=== PATIENT | female | born 1990 | race Caucasian/White ===

== ENCOUNTER 2016-08-19 16:40 | Inpatient (IN) | payer OTHER ==
--- NOTE | ~2016-08-19 | CN ---
Consultation Report [facility] [address] [place]. [address] NAME: ALIYAH BREEN : 86 STATUS : ADM IN PAT#: [id number] AGE: 26 ADM/REG DATE : 08/19/16 MR#: [id number] REPORT SERV DATE: 08/20/16 DICTATED BY: NICHOLAS FELTON DATE: 08/20/16 REPORT STATUS : Draft TRANSCRIBED BY: MODL DATE: 08/20/16 DATE OF CONSULTATION: REASON FOR CONSULTATION: Pancytopenia. HISTORY OF PRESENT ILLNESS: Ms. 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 She has not been seen by primary group previously. She is now hospitalized with the severe pancytopenia of unclear etiology. I spoke with her father, who reports that her counts were relatively normal with mild anemia in July when they were at [facility]. She was admitted to [facility], placed on Bactrim, found to have significant anemia at that time and thought to have a urinary tract infection. Since then, she has been seen by her packaging technician, found to have a white count of 1.8, hemoglobin 7.9, and platelet count of 33,000 and therefore, was admitted to [facility] on 08/19/2016. Since then, she has continued to have significant pancytopenia with a current white count of 2.5, hemoglobin dropping settling of 5.7 today, and a platelet count of 28,000. The patient has required transfusion today, but also received significant volume resuscitation earlier today. I spoke with the father, who reports that he is not sure if she has had prior marrow suppression. Per Dr. Fung's details instructions, Prograf and Imuran have been held at this time. CMV testing has been performed. Yesterday, she became quite confused, developed some metabolic acidosis and was transferred to the ICU. Over the course of the day, she has gotten 4 L of IV fluids. She does have some urine output, although her creatinine remains quite elevated at 4.2. Her blood glucose has now come down to the 120s. PAST MEDICAL HISTORY: 1. Liver transplant secondary to autoimmune hepatitis in 1996. 2. Diabetes type 2. 3. Irritable bowel. 4. Bipolar disorder. 5. Pancytopenia. 6. History of gastroparesis. 7. Chronic kidney disease. 8. Anxiety. 9. Depression. FAMILY HISTORY: She is adopted. Her father is a pathologist and is quite helpful regarding her history. SOCIAL HISTORY: She does not drink or smoke. Lives at home with her boyfriend. She is not able to give me any history as she is quite confused. REVIEW OF SYSTEMS: Unable to give me any history. Consultation Report [address] [place]. [address] NAME: ALIYAH BREEN : 86 STATUS : ADM IN PAT#: [id number] AGE: 26 ADM/REG DATE : 08/19/16 MR#: [id number] REPORT SERV DATE: 08/20/16 DICTATED BY: NICHOLAS FELTON DATE: 08/20/16 REPORT STATUS : Draft TRANSCRIBED BY: JENARO DATE: 08/20/16 PHYSICAL EXAMINATION: VITAL SIGNS: Temperature 98.7, heart rate of 81, BP 122/58. HEENT: Pupils equal, round. She is quite confused and lethargic. Anicteric sclerae. Oral mucosa appears moist. JVP is not elevated. LUNGS: Clear to auscultation. No wheezes or rales. CARDIAC: Regular rate and rhythm. Normal S1, S2. No murmurs or rubs. ABDOMEN: Soft, nontender, nondistended. EXTREMITIES: No clubbing, no cyanosis, no edema. NEUROLOGIC: She is quite sedated and unable to get pretty much and follow directions. LABS: Peripheral film was reviewed. She does have a significant decreased number of platelets. Red blood cells are normal in size and shape. Platelets, there are few teardrop shaped cells. There are no signs of schistocytes. ASSESSMENT AND PLAN: Ms. Aliyah Breen is a 26-year-old woman with a pancytopenia, unclear cause. She certainly may have some marrow suppression secondary to Bactrim discontinued. This will take several days for this to resolve Bactrim. We also reviewed with the father given that there may be a chronic component that she could have her posttransplant liver lymphoproliferative disorder. She has no adenopathy on exam. I think the most the efficient way of ruling out this is bone marrow biopsy which can be performed tomorrow. The most common cause of this would be again viral infections and this patient's proliferation of fairly frequent. I agree with evaluating for CMV and then have low thresholds to CMV PCR. My partners and I will continue follow closely with you. DBD/MODL Nicholas Felton M.D. / [id number] CC: MD Deshaun Luciano M.D.
--- NOTE | ~2016-08-19 | HP ---
History And Physical [place] [id number] [facility] [place]. [address] NAME: JASPER BREEN : 86 STATUS : ADM IN [facility]#: [id number] AGE: 26 ADM/REG DATE : 08/19/16 MR#: [id number] REPORT SERV DATE: 08/19/16 DICTATED BY: SID FELTON DATE: 08/19/16 REPORT STATUS : Draft TRANSCRIBED BY: MODL DATE: 08/19/16 DATE OF ADMISSION: 08/19/2016 CHIEF COMPLAINT: Abnormal labs and nausea with vomiting and dysuria. HISTORY OF PRESENT ILLNESS: This is a 26-year-old lady with history significant for autoimmune hepatitis status post liver transplant, presenting with abnormal labs along with nausea, vomiting, and dysuria. The patient apparently developed nausea and vomiting about couple of weeks ago. The patient was seen at [facility], where she was apparently found to have a urinary tract infection as well as a quite severe anemia with hemoglobin of 5.6. For unclear reasons, the patient was discharged home from the ER and the patient was seen by her PCP the next day, who had her directly admitted to [facility]. The patient was at [facility] for six days and she has gotten some IV fluids along with 2 PRBCs. Otherwise, the patient apparently did not get any other procedures or workup done. The patient was not told of any renal insufficiency or liver dysfunction. Notably, the patient apparently had some kind of thyroid scan, but she is not aware of the results. After six days of hospital stay at [facility], the patient was discharged home one week ago on Bactrim. The patient actually felt better for couple of days before she felt sick again. The patient started to have nausea and vomiting with dysuria. The patient followed up with Dr. High, her buckram sewer, who took some labs and gave her some fluids yesterday. The patient's labs returned today quite abnormal with a creatinine of 4.4 as well as white blood cell count of 1.8, hemoglobin of 7.9, and platelet count of 33. The patient was directly admitted to our facility for further evaluation and care. Of note, the patient continues to have dysuria and severely decreased urine output. REVIEW OF SYSTEMS: The patient denies any fevers or chills. Also, 14-point review of systems reviewed and negative, other than mentioned above. MEDICATIONS: 1. BuSpar 7.5 mg p.o. b.i.d. 2. Cranberry supplement one capsule p.o. b.i.d. 3. Deplin 15 mg p.o. q.a.m. 4. Fish oil 1200 mg p.o. b.i.d. 5. Azathioprine 150 mg p.o. q.h.s. 6. [place] carbonate 450 mg p.o. q.h.s. 7. Acetylcysteine 600 mg p.o. b.i.d. 8. NovoLog per insulin pump. 9. Prednisone 5 mg p.o. q.h.s. 10.Prograf 4 mg p.o. b.i.d. 11.Protonix 40 mg p.o. b.i.d. 12.Seroquel 20 mg p.o. q.h.s. 13.Actigall 300 mg p.o. b.i.d. 14.Phenergan 25 mg p.o. four times daily p.r.n. 15.Zofran 4 mg one to two tablets p.o. q.8 hours p.r.n. 16.Phenergan 25 mg to 50 mg p.o. q.h.s. p.r.n. History And Physical [address] [address] NAME: JASPER BREEN : 86 STATUS : ADM IN [facility]#: [id number] AGE: 26 ADM/REG DATE : 08/19/16 MR#: [id number] REPORT SERV DATE: 08/19/16 DICTATED BY: SID FELTON DATE: 08/19/16 REPORT STATUS : Draft TRANSCRIBED BY: MODL DATE: 08/19/16 17.Aleve 220 mg p.o. q.6 hours p.r.n. 18.Aspirin 325 mg two tablets p.o. q.6 hours p.r.n. for pain. 19.Benadryl 50 mg p.o. q.h.s. p.r.n. ALLERGIES: SULFA. PAST MEDICAL HISTORY: 1. Autoimmune hepatitis status post liver transplant in 1996. 2. Insulin requiring diabetes type 1, on insulin pump. 3. Gastroparesis. 4. Bipolar. 5. Anxiety and depression. 6. OCD. PAST SURGICAL HISTORY: Liver transplant in 1996. FAMILY HISTORY: Adopted and thus, the patient is unaware. SOCIAL HISTORY: The patient does not smoke, drink alcohol, or use any illicit drugs. The patient lives at home with her boyfriend, who is here at bedside. PHYSICAL EXAMINATION: VITAL SIGNS: Temperature 97.9, blood pressure 127/57, pulse 99, respiratory rate is 20, and saturating 99% on room air. GENERAL: The patient is alert and oriented x3 with no focal neurologic deficits. The patient is awake, does not appear to be in acute distress, and she is cooperative. NECK: No JVD. No lymphadenopathy. Normal thyroid. CHEST: No midline sternotomy scar and no tenderness to palpation. LUNGS: Clear to auscultation bilaterally with normal respiratory effort on room air. CARDIOVASCULAR: Regular rate and rhythm with no murmurs, rubs, or gallops, and PMI is nondisplaced. ABDOMEN: Soft, nontender, with active bowel sounds and no organomegaly. EXTREMITIES: No edema. Normal distal pulses. No calf tenderness. SKIN: Clean, dry, warm, and intact. LABORATORY DATA: Sodium is 137, potassium 5.0, chloride 103, BUN 73, creatinine 4.4, glucose 140, AST 65, ALT 75, alkaline phosphatase is 817, total bilirubin is 1.6. CBC: White blood cell count is 1.8, hemoglobin is 7.9 with MCV of 116.1, and platelet count of 33. ASSESSMENT: This is a 26-year-old lady with history of autoimmune hepatitis and diabetes type 1, presenting with pancytopenia and nausea, vomiting, and dysuria. 1. Pancytopenia. 2. Acute kidney injury. 3. Elevated LFTs in the setting of history of liver transplant. 4. Urinary tract infection. 5. Diabetes type 1. 6. Gastroparesis. History And Physical [address] [address] NAME: JASPER BREEN : 86 STATUS : ADM IN [facility]#: [id number] AGE: 26 ADM/REG DATE : 08/19/16 MR#: [id number] REPORT SERV DATE: 08/19/16 DICTATED BY: SID FELTON DATE: 08/19/16 REPORT STATUS : Draft TRANSCRIBED BY: MODL DATE: 08/19/16 7. Bipolar, anxiety, and obsessive-compulsive disorder. PLAN: My plan is to admit the patient under telemetry monitoring. The patient will be given IV fluid resuscitation. In's and out's will be closely monitored. I will check labs to include urine studies, urine culture, liver enzymes, CBC. I will also check coags, TSH, and reticulocyte count percentage. Dr. High has already seen the patient, and we will also consult Nephrology as well as Hepatology, Dr. Paul Fung to come and evaluate the patient. The patient will also get liver ultrasound and kidney ultrasounds. For the urinary tract infection, the patient will be empirically started on IV Rocephin and any potentially nephrotoxic medications will be held at this time. Otherwise, for the rest of stable past medical conditions, including diabetes type 1, gastroparesis, bipolar, anxiety, et al., I will continue home medications. Standard DVT prophylaxis. The patient is full code at this time. C/JENARO Sid Felton MD / [id number] CC: MD Deshaun Luciano M.D. Munford Yates III, M.D.
--- NOTE | ~2016-08-19 | CN ---
Consultation Report [facility] [address] [place]. [address] NAME: JASPER BREEN : 86 STATUS : ADM IN PAT#: [id number] AGE: 26 ADM/REG DATE : 08/19/16 MR#: [id number] REPORT SERV DATE: 08/20/16 DICTATED BY: SHAY KUO DATE: 08/19/16 REPORT STATUS : Draft TRANSCRIBED BY: MODL DATE: 08/19/16 CONSULTATION DATE OF CONSULTATION: 08/19/2016 TIME: 8:35 p.m. ASSESSMENT: Acute on chronic kidney disease in a patient with pancytopenia, increased liver function tests, history of liver transplant, bipolar disorder, on chronic lithium use with ongoing dysuria, question of Bactrim versus Imuran-induced bone marrow suppression, and Bactrim leading to acute kidney injury, or in the setting of liver decompensation that she has. She has gone on to have hepatorenal syndrome, possibly some acute tubular necrosis in relation to ongoing urinary tract infection and possibly periods of hypotension. Other disorders include CMV versus PTLD verus recurrence of autoimmune hepatitis and underlying autoimmune disease. PLAN: Therefore, 1. Continue hydration. 2. Ditropan for dysuria. 3. Urinalysis. 4. Abdominal and pelvic CT scan. 5. Stress dose steroids. Stop the Imuran and reduce the Prograf dose. 6. Check JUAN CARLOS and complements. 7. Hematology and Hepatology consult. 8. Adjust her diet. 9. Hold lithium, pending level, and await further recommendations and question of need for a bone marrow biopsy and see trend in lab work. Hopefully, renal function will improve as this is mainly Bactrim-induced injury. Obtain records from [place]. HISTORY OF PRESENT ILLNESS: She is a 26-year-old female with liver transplant in 1996 due to autoimmune hepatitis. She has seen previously by our group with underlying CKD last in 2013, prior acute kidney injury due to dehydration. Apparently was at [facility] for a week approximately 10 days ago when she presented there with anemia and also complaints of some dysuria and difficulty in voiding, felt she may have a UTI, question whether she got transfused over there at [place], and the patient is unclear of the details as to what was done for there, but apparently placed on Bactrim and IV fluids. Discharged home. Nausea and vomiting persisted. Pruritus, but no skin rash, and came into the ER here where she was found to have an acute hepatitic picture and in addition found to be in renal failure and pancytopenic. As a consequence, she has been admitted, and we have been consulted for further evaluation. She denies any prior history of acute injury on chronic kidney disease, although records indicate that she had a creatinine as high as previously of 1.3 in 2014. She is on chronic lithium use for bipolar disorder, but her main complaint now is persistent dysuria. Denies any abdominal pain. No shortness of breath. No rash. No pain in the right upper quadrant. She has had some nausea and vomiting, but has been taking Zofran to keep her immunosuppression down. Consultation Report [facility] [address] [place]. [address] NAME: JASPER BREEN : 86 STATUS : ADM IN PAT#: [id number] AGE: 26 ADM/REG DATE : 08/19/16 MR#: [id number] REPORT SERV DATE: 08/20/16 DICTATED BY: HSAY KUO DATE: 08/19/16 REPORT STATUS : Draft TRANSCRIBED BY: JENARO DATE: 08/19/16 PAST MEDICAL HISTORY: Includes 1. A history of autoimmune hepatitis for which she got a liver transplant when she was 6 years old initially at [place] and now followed at [facility]. 2. Bipolar disorder. 3. CKD and history of gastroparesis. She is also apparently diabetic. ALLERGIES: POSSIBLY TO BACTRIM. HOME MEDICATIONS: Include acetylcysteine, aspirin, Imuran, BuSpar, Benadryl, NovoLog, lithium, Naprosyn, pantoprazole, Protonix, Deltasone, Phenergan, Seroquel, Prograf, Actigall, and Deplin. SOCIAL HISTORY: Does not smoke cigarettes. No alcohol or medication or street drug usage. SYSTEM REVIEWS: As per the HPI. PHYSICAL EXAMINATION: GENERAL: She is awake, alert, and in no acute distress. VITAL SIGNS: Blood pressure 135/66, heart rate in the 80s. She is afebrile. SKIN: She is pale and jaundiced. HEENT: Oral mucosa is dry. No pharyngitis. Pupils are equal and reactive to light. NECK: Supple. No thyromegaly. No carotid bruits heard. No lymphadenopathy. Trachea is central. LUNGS: Air entry is equal bilaterally. CHEST: Clear to auscultation. HEART: Heart sounds 1 and 2 are heard. No rub or apex beat is not displaced. ABDOMEN: Mild distention. No hepatosplenomegaly. No tenderness, guarding, or rebound. Bowel sounds normal. EXTREMITIES: She has trace peripheral edema. There is no evidence of skin rash. Mild edema is noted and no loss of skin turgor. No acute arthritic findings noted. NEUROLOGIC: She is awake, alert, oriented to time, place, and person. No gross neurological deficits. Peripheral pulses are present dorsalis pedis, posterior tibial. She is awake, alert, and oriented to time, place, and person. Herrick not depressed. LABORATORY DATA: Her lab work shows her to have sodium 131, potassium 5.3, chloride 100, CO2 of 24, BUN 70, creatinine 3.8, albumin is 3.1, alkaline phosphatase 844, gamma GT 718, ALT 71, AST 58, TSH was less than 0.005. Hemoglobin 7.1, hematocrit 21.8, white count 1.6, and platelet count 35,000. MG/MODL Shay Consultation Report [address] [place]. [address] NAME: JASPER BREEN : 86 STATUS : ADM IN [facility]#: [id number] AGE: 26 ADM/REG DATE : 08/19/16 MR#: [id number] REPORT SERV DATE: 08/20/16 DICTATED BY: SHAY KUO DATE: 08/19/16 REPORT STATUS : Draft TRANSCRIBED BY: MODL DATE: 08/19/16 Armaan Kuo / [id number] CC: MD Deshaun Luciano M.D.
--- NOTE | ~2016-08-19 | CN ---
Consultation Report [facility] [address] [place]. [address] NAME: JASPER BREEN : 86 STATUS : ADM IN PAT#: [id number] AGE: 26 ADM/REG DATE : 08/19/16 MR#: [id number] REPORT SERV DATE: 08/20/16 DICTATED BY: PAUL FUNG DATE: 08/20/16 REPORT STATUS : Draft TRANSCRIBED BY: MODL DATE: 08/20/16 CONSULTATION DATE OF CONSULTATION: REASON: Cholestatic hepatitis with history of liver transplant and acute kidney injury. HISTORY: Ms. Breen is a 26-year-old, lady with history of liver transplant in 1996 secondary to autoimmune hepatitis. She has diabetes, on insulin pump. Also has IBS followed by my partner, Dr. High as an outpatient for GI issues. She follows at [place] for liver transplant care under Dr. Lim. She started having nausea, vomiting, abdominal pain, went to [facility]. Blood work showed anemia and thrombocytopenia. Given antibiotics and IV fluid and discharged home. Next day went to primary care physician since she was not feeling better, was directly admitted to [facility] under Hospitalist Service. Treated for urinary tract infection. She was also found having hyperthyroidism, seen by complex care nurse, had a thyroid uptake scan which revealed only 1.7% uptake consistent with thyroiditis, possible autoimmune/drug-induced. She has bipolar disorder on lithium, along with Seroquel and Deplin for long time. There is some history of prescription of Bactrim to the patient but I did not see Bactrim on the discharge summary from [facility]. She was there for 5 to 6 days. Her liver functions were pretty much normal with AST of 57, total bilirubin of 1.7, albumin 4.1, alkaline phosphorus was 523. Prograf level was 3.6. Renal functions were normal. At the time of discharge, creatinine was 1. Sodium was 138. Since she was not feeling better, she went to see Dr. High yesterday, had a lab work done, came with acute kidney injury. Creatinine 4.4 with hyponatremia, elevated transaminases and GGT and worsening liver functions. She has been on Prograf, Imuran, and prednisone for a long time. I do not have any information whether she had autoimmune flare after the transplant, do not know the status of histology. Last liver biopsies were not able to get from patient. Since admission, patient has been seen by Dr. Kuo from the Renal Service, hydrocortisone 100 mg IV every 8 hours has been started. Imuran and Prograf have been on hold. Aneta has been on hold at this point. The patient is complaining of nausea, fatigue, weakness, also has itching, has been on Ursodiol, not sure how long, suspecting due to cholestasis, chronic. This morning, her renal functions are bit better. Creatinine has decreased to 3.8 but her symptoms have not improved significantly. PAST MEDICAL HISTORY: Autoimmune hepatitis, status post liver transplant. Type 1 diabetes, on insulin. Gastroparesis, bipolar disorder, IBS, anxiety, and depression. Consultation Report [address] [place]. [address] NAME: JASPER BREEN : 86 STATUS : ADM IN PAT#: [id number] AGE: 26 ADM/REG DATE : 08/19/16 MR#: [id number] REPORT SERV DATE: 08/20/16 DICTATED BY: PAUL FUNG DATE: 08/20/16 REPORT STATUS : Draft TRANSCRIBED BY: MODIla DATE: 08/20/16 PAST SURGICAL HISTORY: Liver transplant in . FAMILY HISTORY: Adopted. SOCIAL HISTORY: Does not smoke. Does not drink alcohol. Lives home with her boyfriend. REVIEW OF SYSTEMS: As per HPI. Other systems reviewed, significant positive has been mentioned in the history. PHYSICAL EXAMINATION: GENERAL: Well developed, well nourished, anxious, restless, but not able to provide detailed accurate history, but answering questions directly. VITALS: Blood pressure is 130/80, pulse 110, respiration 21, temperature 98.7, pulse ox 97%. EYES: Have pallor, also has icterus. Pupils equally round, reactive. NECK: Supple. No JVD or thyromegaly. LUNGS: Bilateral clear to auscultation. No rales, rhonchi, or wheezing. CARDIOVASCULAR: S1, S2 present. Rate and rhythm regular. No murmur or gallop. ABDOMEN: Soft, mild diffuse tenderness. No rebound tenderness. No ascites. EXTREMITIES: Trace edema. Normal pulses. No signs of DVT. NEURO: No focal deficits. Cranial nerves intact. Speech is normal. LAB WORK: Sodium 131, potassium 5.3, chloride 100, bicarb 24, BUN 17, creatinine 3.8, glucose 165, total bilirubin 2, alkaline phosphatase 844, GGT 718, ALT 71, AST 58, LDH 224. TSH less than 0.005. IgG and IgM are normal. Complement levels are pending. Urine negative. JUAN CARLOS is pending. WBC 1.6, hemoglobin 7.1, platelet 35. INR 1.1. Prograf level is pending. Urine chemistries pending. HSV and CMV are pending. CT abdomen and pelvis is pending. Ultrasound of the liver and kidneys both are pending at this point. IMPRESSION: 1. Cholestatic hepatitis, acute on chronic, worsening function, suspect due to medication related, doubt rejection. Since she has baseline cholestasis, bilirubin is pretty much at baseline. Transaminase, bit worse. 2. Unknown current liver status. Not sure when she had last liver biopsy. 3. Status post liver transplant in 1996 secondary to autoimmune hepatitis. Her liver functions are relatively preserved until recently. Last liver functions were stable as of [facility] records when she was discharged on 08/11/2016. 4. Acute kidney injury, suspect due to medications. Renal functions were normal on 08/09 from the [place] records. Imuran, Prograf, and lithium are on hold at this point, getting IV fluids. 5. Bipolar disorder. Multiple medications including lithium. 6. 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 Serology has been drawn at [facility]. No need of further workup at this time but definitely need some beta todd, may be Tapazole once renal functions are bit better. Consultation Report [address] [place]. [address] NAME: JASPER BREEN : 86 STATUS : ADM IN PAT#: [id number] AGE: 26 ADM/REG DATE : 08/19/16 MR#: [id number] REPORT SERV DATE: 08/20/16 DICTATED BY: PAUL FUNG DATE: 08/20/16 REPORT STATUS : Draft TRANSCRIBED BY: MODL DATE: 08/20/16 7. Anxiety/depression. 8. Pruritus, secondary to cholestasis. SUGGESTION: 1. For liver transplant medication. We will hold Prograf and Imuran at this time. 2. Agree with hydrocortisone IV every 8 hours. 3. We will get CMV IgM,HSV IgM. If those are positive then PCR due to pancytopenia. 4. Agree with hematology consult for acute on chronic pancytopenia. 5. IV fluids. 6. Hold lithium at this point. I think we will have to treat her bipolar with non-lithium medications. 7. Continue Ursodiol. At this point, we can add Questran for itching along with antihistamine. 8. Daily labs. 9. Avoid renal and hepatotoxic medications. Please call me if you have any question or concern. I will try to get in touch with Dr. Lim and get [facility] record. We will hold liver biopsy at this point since it is not urgency. If there is no liver biopsy recently at [place] then we can schedule it tomorrow or Thursday. Call me if you have any questions or concerns. CP/MODL Paul Fung M.D. / [id number] CC: MD Deshaun Luciano M.D.
--- NOTE | ~2016-08-19 | DS ---
Discharge Summary [id number] [place]. [address] NAME: JASPER BREEN : 86 STATUS : DIS IN PAT#: [id number] AGE: 26 ADM/REG DATE : 08/19/16 MR#: [id number] REPORT SERV DATE: 08/25/16 DICTATED BY: SID FELTON DATE: 08/24/16 REPORT STATUS : Draft TRANSCRIBED BY: MODL DATE: 08/24/16 ADMISSION DATE: 08/19/2016 DISCHARGE DATE: 08/24/2016 DISCHARGE DIAGNOSES: 1. Acute on chronic kidney disease with metabolic acidosis, present on admission but now resolved. Baseline creatinine is 1.7 but the patient's creatinine this morning is 1.27. 2. Acute on chronic pancytopenia with white count of 2.4, hemoglobin 8.5, and platelet of 39 today. The patient's baseline white blood cell count is 3000 and platelet counts are in the 100s. Hemoglobin is comparable to baseline. 3. Likely a reaction to Bactrim as the cause for above. 4. 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 5. Slightly elevated LFTs at baseline. 6. Toxic metabolic encephalopathy. 7. Pulmonary edema during the hospital stay. 8. Type 1 diabetes with possible component of diabetic ketoacidosis that has contributed to the acidosis mentioned above. 9. Bipolar disorder, has been on lithium which has been discontinued for now. CONSULTS: 1. GI and Hepatology. 2. Nephrology. 3. Critical Care. 4. Heme-Onc. PROCEDURES: Bone marrow biopsy for which the results are still pending at this time. OTHER TESTS: 1. CMV which was negative. 2. 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 HOSPITAL COURSE: This is a 26-year-old lady who was admitted to the hospital with acute kidney injury after having been on Bactrim for urinary tract infection. For details, please refer to my H and P dated 08/19/2016. The patient was admitted to the hospital with creatinine of 4 which is much higher than her baseline of 1.7. The patient was otherwise doing fairly well. The patient is on chronic immunosuppressive therapy including Prograf, Imuran, and steroids which would affect her kidney function as well as her immune system. The patient still had a very positive urinalysis and thus the patient was started on IV Rocephin and most of her immunosuppressive suppressants were held. The patient was started on IV steroids instead. By the next morning, the patient developed worsening metabolic acidosis likely due to the acute kidney injury as well as possible component of DKA. The patient actually required to be transferred to an ICU where she was taking care of the rest of the hospital stay until the day of discharge. In summary, the patient was seen by multiple different specialties. Thankfully with aggressive volume resuscitation along with Discharge Summary [address] [address] NAME: JASPER BREEN : 86 STATUS : DIS IN PAT#: [id number] AGE: 26 ADM/REG DATE : 08/19/16 MR#: [id number] REPORT SERV DATE: 08/25/16 DICTATED BY: SID FELTON DATE: 08/24/16 REPORT STATUS : Draft TRANSCRIBED BY: MODL DATE: 08/24/16 eventual diuretic therapy, the patient's renal function continued to improve. The patient's renal function is now better than baseline this morning with creatinine of 1.27 whereas her baseline is 1.7. The patient did develop transient pulmonary edema with volume resuscitation but with diuresis the patient improved. For the acute on chronic pancytopenia, Hematology was consulted who actually went ahead and did a bone marrow biopsy. The results are still pending at this time but consensus is that the patient probably suffered from bone marrow suppression from the Bactrim as well as other immunosuppressive therapy that she is chronically on. The patient's white blood cell count and platelets have nonetheless stayed stable throughout the hospital stay. The patient was tested for possible CMV as well as HSV and interestingly the HSV did come back positive and thus the patient was started on acyclovir which she remains for now. The patient will follow up with Oncology as soon as she is discharged and hopefully by then the bone marrow biopsy results will be back and decision will be made to either continue or stop the acyclovir. For the diabetes type 1 with possible DKA, the patient did develop extreme hyperglycemia as the patient was started on steroids by the second day of her hospital stay. The patient did have an anion gap but only a very small amount of acetone and negative for ketones but the patient was treated for a presumed DKA still with insulin drips. The patient is now back on her home insulin pump. Also of note, the patient has a history of bipolar disorder for which she has been on lithium. The patient's lithium level was found to be elevated and thus it is discontinued especially given patient's worsening renal function. We will leave the decision for continuing lithium up to her primary care. All in all, the patient is now completely hemodynamically stable and back to her baseline health status. The patient very much is eager to be discharged home and she has excellent outpatient followup plans. Thus, the patient is now being discharged home to be followed closely as outpatient. DISCHARGE MEDICATIONS: 1. Acyclovir 400 mg p.o. b.i.d. for the next 5 days. 2. The patient's lithium is discontinued. 3. Otherwise, no changes to her chronic medical regimen including Prograf, Imuran, and steroids. DISPOSITION: Home. FOLLOWUP: Please follow up with [facility], Dr. High and Dr. Fung in the next 3-5 days. The patient will need to have a CBC and a CMP done prior to her appointments. The patient is also to follow up with [facility] closely and we will have all the medical records faxed over to [facility]. Total of 45 minutes spent in coordinating this patient's discharge today. HECTOR/JENARO Sid Felton MD Discharge Summary [address] [address] NAME: JASPER BREEN : 86 STATUS : DIS IN PAT#: [id number] AGE: 26 ADM/REG DATE : 08/19/16 MR#: [id number] REPORT SERV DATE: 08/25/16 DICTATED BY: SID FELTON DATE: 08/24/16 REPORT STATUS : Draft TRANSCRIBED BY: JENARO DATE: 08/24/16 / [id number] CC: MD Deshaun Luciano M.D.
--- NOTE | ~2016-08-19 | CN ---
Consultation Report [facility] [address] [place]. [address] NAME: JASPER BREEN : 86 STATUS : ADM IN PAT#: [id number] AGE: 26 ADM/REG DATE : 08/19/16 MR#: [id number] REPORT SERV DATE: 08/20/16 DICTATED BY: GUERDA WALL DATE: 08/20/16 REPORT STATUS : Draft TRANSCRIBED BY: MODL DATE: 08/20/16 CONSULTATION DATE OF CONSULTATION: HISTORY OF PRESENT ILLNESS: This is a 26-year-old patient I was asked to see by the hospitalist Dr. Kinney for severe encephalopathy, metabolic acidosis, renal failure, and hyperkalemia. The patient had been admitted to the floor on 07/22/2016 with nausea and vomiting that was persistent. Apparently, the patient has had a previous history of underlying CKD and is status post liver transplant in 1996 due to autoimmune hepatitis. She had been seen at [facility] approximately ten days ago and was found to be anemic, and had complaints of dysuria and difficulty voiding. It was thought that, she may have had UTI and may have even been transfused at [facility], but records are not available as of yet. In any event, she was started on Bactrim and IV fluids and then eventually discharged home. She then continued to being develop nausea and vomiting and had a complaint of pruritus, but no skin rash, and then presented here to [facility], was found to be in renal failure and pancytopenic, and was then subsequently admitted for further evaluation. She was seen by Dr. Kuo for nephrology. Medications were reviewed. Possibilities at that time were hepatorenal, tubular necrosis, possible urinary tract infection, and then other possible disorders were CMV and PILD or even recurrence of autoimmune hepatitis. The patient was also seen by Dr. Paul Fung, Hepatology and the impression was cholestatic hepatitis, acute on chronic with worsening function and this was thought to be perhaps secondary to medication rejection, was not considered a primary etiology. Imuran, Prograf, and lithium were discontinued, although it appears that the patient got at least a dose of Prograf at a lower dose. The patient then was started on Solu-Medrol twice a day with the addition of Solu-Cortef 100 q.h. On the morning, on the 08/20/2016, the patient was extremely agitated, combative, was found to have a metabolic acidosis, a gap of 3, and hyperglycemic, probably secondary from the steroids and at this point, was thought to be in DKA. She was transferred to the MICU for further care. ALLERGIES: LISTED SULFA, PROBABLY SECONDARY TO THE REACTION SHE HAD TO THE BACTRIM, THEN INCLUDED ITCHING, REDNESS, VOMITING, NAUSEA, AND DIZZINESS. MEDICATIONS: Her medications at home were acetylcysteine, aspirin, azathioprine, BuSpar, Benadryl, NovoLog insulin, Eskalith or lithium, Aleve, omega-3 fatty acid, Zofran, Protonix, Deltasone 5 mg at bedtime, Phenergan, Seroquel, Prograf, Actigall, cranberry supplement, and Deplin. PAST MEDICAL HISTORY: Significant for: 1. Liver transplant secondary to autoimmune hepatitis in 1996. 2. Type 1 diabetes with insulin pump at home. 3. Irritable bowel syndrome. 4. Bipolar disorder. 5. Pancytopenia. Consultation Report [address] [address] NAME: JASPER BREEN : 86 STATUS : ADM IN [facility]#: [id number] AGE: 26 ADM/REG DATE : 08/19/16 MR#: [id number] REPORT SERV DATE: 08/20/16 DICTATED BY: GUERDA WALL DATE: 08/20/16 REPORT STATUS : Draft TRANSCRIBED BY: JENARO DATE: 08/20/16 6. History of gastroparesis. 7. CKD. 8. Anxiety. 9. Depression. FAMILY HISTORY: She is adopted. SOCIAL HISTORY: Does not smoke or drink alcohol, lives at home with her boyfriend. REVIEW OF SYSTEMS: Cannot be obtained from the patient, because she is extremely agitated and cannot give a review of systems. PHYSICAL EXAMINATION: VITAL SIGNS: The patient was seen in the CCU, temperature is 98.8, heart rate is 107, respiratory rate is 40, blood pressure 98/31, O2 saturation is 100% on 2 L. GENERAL: When the patient was first seen, she was extremely agitating, combative, and would not follow commands as her PICC line was trying to be inserted. She received Haldol and one dose of fentanyl, and Precedex drip was started. Eventually, the PICC line was able to be placed and the patient was able to be calmed to a Racz of 0 to -1 with close attention to airway. Overall, the patient's skin is warm and dry. HEENT: Head is atraumatic, normocephalic. The patient is slightly icteric. Sclerae are icteric. Conjunctivae are pink. Pupils are reactive, but sluggish. Oral mucosa is dry. Tongue is midline. NECK: Supple without JVD, lymphadenopathy, or thyromegaly. LUNGS: Somewhat coarse to auscultation. CARDIAC: Reveals a regular rate and rhythm. No significant murmurs. BREASTS: Symmetrical ABDOMEN: Soft and nondistended. Well-healed surgical scars are present. Bowel sounds are present. Barnes catheter is in place, draining blood-tinged urine. There is no pain to palpation of the abdomen. EXTREMITIES: Pulses are palpable and symmetrical. NEUROLOGIC: Prior to sedation was totally nonfocal with cranial nerves 2-12 being intact. LAB WORK: Arterial blood gas initially showed a pH of 7.27, pCO2 of 16, PO2 of 120, a bicarbonate of 7, O2 saturation is 98% on room air. Urinalysis is unremarkable. Sodium 130, potassium 6.5, chloride 98, bicarb 9, BUN 78, creatinine 4.19, glucose 416, phosphorus 8.1, total bilirubin 3.2. Alkaline phosphatase 848, ALT 67, AST is 53, small amount of acetone present. Troponins, CPK, CK-MB are negative. Free T4 is 5.20, which is elevated and her TSH was less than 0.005. Ammonia level was 37. Lactic acid level 3.7. White cell count is 2.4, hemoglobin 8.8, hematocrit 25, platelet count 51. Protime is 15.8, INR is 1.3. ASSESSMENT AND PLAN: This is a 26-year-old patient, status post liver transplant for autoimmune hepatitis, on immunosuppressive therapy. She follows with Dr. Lim at Consultation Report [address] [place]. [address] NAME: JASPER BREEN : 86 STATUS : ADM IN [facility]#: [id number] AGE: 26 ADM/REG DATE : 08/19/16 MR#: [id number] REPORT SERV DATE: 03/15/17 DICTATED BY: GUERDA WALL DATE: 08/20/16 REPORT STATUS : Draft TRANSCRIBED BY: MODL DATE: 08/20/[address] [place] [address] Fung. Now presents with nausea, vomiting, although the urinalysis is really unremarkable for an infection, so at this point, we will stop Rocephin. Nausea and vomiting possibly could be related to gastroparesis or even to the fact that she now is hyperthyroid either from autoimmune etiology or from being on lithium. So at this point, we will hold the lithium, continue to follow TSH and free T4, and then think about Tapazole depending on what her kidney function is like. 1. Chronic kidney disease is mentioned per Dr. Kuo for all the reasons. He has mentioned including possibly even decreased volume status and then being on Bactrim, and other autoimmune suppressive medications. The plan will be to correct her metabolic acidosis, follow her electrolytes, place a Barnes, follow I's and O's, and repeat lab work later. Nephrology will continue to follow the patient. 2. Autoimmune medications will be held and Solu-Cortef will be decreased to only once daily and Solu-Medrol will be discontinued. Dr. Paul Fung has been appraised of the patient's transfer to the ICU and also felt that 100 mg of IV Solu-Cortef once a day will be sufficient. 3. Watch for any evidence of other infection since the patient has been immunosuppressed. We will check a procalcitonin in the morning. 4. Pancytopenia, thrombocytopenia, apparently this is a chronic condition for the patient probably related to autoimmune suppressive drugs and Dr. Paul Fung was aware of that as well. We will just follow along, continuing to keep in mind to look for other etiologies. Her platelet count actually is trending upward, it was 35 on admission, and currently is 51. 5. Since we are treating her as a diabetic ketoacidosis, we will do frequent lab work, start insulin drip, provide adequate IV fluid hydration. DVT prophylaxis. Chem B with SCDs, but if stable and no evidence of bleeding, can start subcu heparin given that she has a decreased renal function. This patient is extremely ill, in critical condition requiring transfer to the ICU, and is at risk for circulatory shock, hepatic failure, renal failure, respiratory failure, and neurologic failure. She needs frequent assessment of volume, hemodynamic assessment, neurologic monitoring and treatment, and assessment and treatment of complex metabolic derangements. A total of 75 minutes of ICU time will be charged, beginning at 11:15 a.m. and ending at 12:30 p.m. /JENARO Guerda Wall M.D. / [id number] CC: Sid Kinney MD Consultation Report [address] [address] NAME: JASPER BREEN : 86 STATUS : ADM IN PAT#: [id number] AGE: 26 ADM/REG DATE : 08/19/16 MR#: [id number] REPORT SERV DATE: 08/20/16 DICTATED BY: GUERDA WALL DATE: 08/20/16 REPORT STATUS : Draft TRANSCRIBED BY: JENARO DATE: 08/20/16 Deshaun Peña M.D.
[~2016-08-19 16:40] MED LIST: ACT300 PO; ESKALITH PO; MULTIPLE VIT PO; NOVLOGPUMP SC; P5 PO; PR25 PO; PROGRAF1 PO; PROTONIX PO; ZOFRAN8 PO
[2016-08-19] MEDS ORDERED: BUSPIRONE7.5 MG PO (17:17)
[2016-08-19] MEDS ORDERED: CRANBERRY SUPPLEMENT PO (17:17)
[2016-08-19] MEDS ORDERED: FISH OIL1200 MG PO (17:19)
[2016-08-19] MEDS ORDERED: DEPLIN 15 MG PO (17:19)
[2016-08-19] MEDS ORDERED: AZASAN75 MG PO (17:19)
[2016-08-19] MEDS ORDERED: ESKACR PO (17:20)
[2016-08-19] MEDS ORDERED: NAC600 MG PO (17:20)
[2016-08-19] MEDS ORDERED: P5 PO (17:21)
[2016-08-19] MEDS ORDERED: NOVLOGPUMP SC (17:21)
[2016-08-19] MEDS ORDERED: SEROQUEL200 MG PO (17:22)
[2016-08-19] MEDS ORDERED: ACT300 PO (17:22)
[2016-08-19] MEDS ORDERED: PROTONIX PO (17:22)
[2016-08-19] MEDS ORDERED: PROGRAF1 PO (17:22)
[2016-08-19] MEDS ORDERED: PR25 PO (17:23)
[2016-08-19] MEDS ORDERED: ZOFRAN4 PO (17:24)
[2016-08-19] MEDS ORDERED: PR25R PR (17:24)
[2016-08-19] MEDS ORDERED: ASA5GR PO (17:25)
[2016-08-19] MEDS ORDERED: ALEVE220 MG PO (17:25)
[2016-08-19] MEDS ORDERED: BEN25UDL PO (17:26)
[2016-08-19 17:56] LABS: MEAN CORPUS HGB CONC 32.6 g/dL (32.0-36.0)
[2016-08-19 17:58] LABS: HEMATOCRIT 21.8 % (36.0-48.0); HEMOGLOBIN 7.1 g/dL (12.0-16.0); MEAN CORPUSCULAR HEMOGLOB 35.5 pg (26.0-34.0); PLATELET COUNT 35 10/3/uL (150-400); RBC DISTRIBUTION WIDTH 19.5 % (12.0-16.0); WHITE BLOOD CELLS 1.6 10/3/uL (4.5-10.5)
[2016-08-19 18:00] LABS: MANUAL DIFF YES %
[2016-08-19 18:12] LABS: ALBUMIN 3.1 G/DL (3.5-5.0); ALKALINE PHOSPHATASE 844 U/L (45-117); CALCIUM, SERUM 9.8 MG/DL (8.5-10.4); CHLORIDE, SERUM 100 MMOL/L (96-112); CO2 (CARBON DIOXIDE) 24 MMOL/L (24-34); GAMMA GT 718 U/L (5-85); GLOBULIN 3.2 G/DL (2.5-4.1); POTASSIUM, SERUM 5.3 MMOL/L (3.5-5.3); SGOT(AST) 58 U/L (5-40); SGPT(ALT) 71 U/L (5-65); TOTAL PROTEIN 6.3 G/DL (6.0-8.5)
[2016-08-19 18:13] LABS: INTERNATIONAL NORMAL RATI 1.1 UNITS (-); PROTIME (NOT ORD) 14.5 SEC (12.0-14.5)
[2016-08-19 18:14] LABS: BUN (BLOOD UREA NITROGEN) 70 MG/DL (6-23); GFR AFRICAN AMERICAN 18 ML/MIN (>=60); GFR NON AFRICAN AMERICAN 15 ML/MIN (>=60); GLUCOSE, SERUM 165 MG/DL (60-99); SODIUM, SERUM 131 MMOL/L (135-148)
[2016-08-19 18:42] LABS: IMMUNOGLOBULIN G 916 MG/DL (673-1464); IMMUNOGLOBULIN M 134 MG/DL (30-270)
[2016-08-19 18:46] LABS: ANISOCYTOSIS 1+ (5-10/OIF) (0-5/OIF); BAND NEUTROPHILS 3 %; BASOPHILS 1 %; BASOPHILS ABSOLUTE (CALC) 0.02 10/3/uL (0.0-0.16); EOSINOPHILS 3 %; EOSINOPHILS ABSOLUTE (CALC) 0.05 10/3/uL (0.0-0.53); LYMPHOCYTES 24 %; LYMPHOCYTES ABSOLUTE (CALC) 0.38 10/3/uL (0.67-4.30); MONOCYTES 3 %; MONOCYTES ABSOLUTE (CALC) 0.05 10/3/uL (0.21-1.20); OVALOCYTES 1+ (3-10/OIF) (0-2/OIF); SEGMENTED NEUTROPHIL (0) 66 %; TOTAL NUCLEATED CELLS 100
[2016-08-19 19:15] LABS: RETICULOCYTE COUNT 2.4 % (0.5-2.9); RETICULOCYTE COUNT ABSOLUTE 47.1 10/3/uL (20.2-119.8)
[2016-08-19 20:04] LABS: PROCALCITONIN 1.02 ng/mL (<0.5)
[2016-08-19 20:14] LABS: FOLATE 83.7 NG/ML (>5.2); ULTRASENSITIVE TSH < 0.005 MCIU/ML (0.358-3.740)
[2016-08-20 07:19] LABS: BASOPHILS 2.5 %; BASOPHILS ABSOLUTE 0.06 10/3/uL (0.0-0.16); EOSINOPHILS 0 %; IMMATURE GRANULOCYTES 0.4 %; IMMATURE GRANULOCYTES ABSOLUTE 0.01 10/3/uL (0.0-0.11); LYMPHOCYTES 18.8 %; LYMPHOCYTES ABSOLUTE 0.45 10/3/uL (0.67-4.30); MEAN CORPUS HGB CONC 31.7 g/dL (32.0-36.0); MEAN CORPUSCULAR HEMOGLOB 35.7 pg (26.0-34.0); MONOCYTES 2.1 %; MONOCYTES ABSOLUTE 0.05 10/3/uL (0.21-1.20); NEUTROPHILS 76.2 %; NEUTROPHILS ABSOLUTE 1.82 10/3/uL (2.02-8.40); RBC DISTRIBUTION WIDTH 19.5 % (12.0-16.0); RED CELL COUNT 2.24 10/6/uL (4.0-5.6)
[2016-08-20 07:29] LABS: INTERNATIONAL NORMAL RATI 1.3 UNITS (-); PROTIME (NOT ORD) 15.8 SEC (12.0-14.5)
[2016-08-20 07:32] LABS: HEMATOCRIT 25.2 % (36.0-48.0); MEAN CORPUSCULAR VOLUME 112.5 fL (80-100); PLATELET COUNT 51 10/3/uL (150-400); WHITE BLOOD CELLS 2.4 10/3/uL (4.5-10.5)
[2016-08-20 07:33] LABS: MANUAL DIFF NO %
[2016-08-20 07:54] LABS: ANISOCYTOSIS 1+ (5-10/OIF) (0-5/OIF); HYPOCHROMIA 1+ (3-10/OIF) (0-2/OIF); PLATELET ESTIMATE DEC (ADEQUATE)
[2016-08-20 08:09] LABS: ALBUMIN 3.2 G/DL (3.5-5.0); ALKALINE PHOSPHATASE 848 U/L (45-117); BUN (BLOOD UREA NITROGEN) 78 MG/DL (6-23); CALCIUM, SERUM 9.9 MG/DL (8.5-10.4); CHLORIDE, SERUM 98 MMOL/L (96-112); CK-MB 0.8 NG/ML; CO2 (CARBON DIOXIDE) 9 MMOL/L (24-34); COMPLEMENT C3 93 MG/DL (75-161); COMPLEMENT C4 9.5 MG/DL (16-47); CPK 34 U/L (0-200); CREATININE 4.19 MG/DL (0.55-1.02); DIRECT BILIRUBIN 2.6 MG/DL (0.0-0.4); GFR AFRICAN AMERICAN 16 ML/MIN (>=60); GFR NON AFRICAN AMERICAN 14 ML/MIN (>=60); GLOBULIN 3.2 G/DL (2.5-4.1); GLUCOSE, SERUM 416 MG/DL (60-99); INDIRECT BILIRUBIN(NOT ORDER) 0.6 MG/DL (0.1-0.9); PHOSPHORUS, SERUM 8.1 MG/DL (2.5-4.5); POTASSIUM, SERUM 6.5 MMOL/L (3.5-5.3); SGPT(ALT) 67 U/L (5-65); SODIUM, SERUM 130 MMOL/L (135-148); TOTAL BILIRUBIN 3.2 MG/DL (0-1.2); TOTAL PROTEIN 6.4 G/DL (6.0-8.5); TROPONIN I 0.02 NG/ML (<0.05)
[2016-08-20 08:10] LABS: SGOT(AST) 53 U/L (5-40)
[2016-08-20 09:36] LABS: CREATININE, URINE 84.7 MG/DL
[2016-08-20 09:43] LABS: INSTRUMENT SERIAL # 8083; PCO2 (CO2 TENSION) 16 MMHG (35-45); PO2 (O2 TENSION) 120 MMHG (79-93); pH 7.27 (7.37-7.43)
[2016-08-20 09:44] LABS: CARBOXYHEMOGLOBIN 1.1 % (0-3); HCO3 (ACTUAL BICARBONATE) 7.1 MEQ/L (23-27); HEMOBLOGIN CONTENT 8.2 G/DL (12-16); METHEMOGLOBIN 0.4 % (0-3); O2 CONTENT 11.4 VOL% (18-24); SAMPLE Arterial
[2016-08-20 09:49] LABS: ASCORBIC ACID (UR NOT ORDER) NEG (NEG); BILIRUBIN, URINE NEGATIVE (NEG); KETONE, URINE NEGATIVE (NEG); LEUKOCYTE ESTERASE(NOT OR NEG (NEG); WBC (NOT ORDERED) (RFLEX) < 1 (0-5)
[2016-08-20 10:56] LABS: ACETONE SMALL
[2016-08-20 12:17] LABS: BE (BASE EXCESS) -10.3 MEQ/L (0 +/- 2.5); CARBOXYHEMOGLOBIN 0.3 % (0-3); HCO3 (ACTUAL BICARBONATE) 13.4 MEQ/L (23-27); HEMOBLOGIN CONTENT 6.8 G/DL (12-16); INSTRUMENT SERIAL # 35151; METHEMOGLOBIN 1.6 % (0-3); O2 CONTENT 8.8 VOL% (18-24); OPERATOR ID 14947; PCO2 (CO2 TENSION) 22 MMHG (35-45); PO2 (O2 TENSION) 70 MMHG (79-93); SAMPLE Arterial
[2016-08-20 12:25] LABS: ALBUMIN 2.9 G/DL (3.5-5.0); CALCIUM, SERUM 10.1 MG/DL (8.5-10.4); CHLORIDE, SERUM 96 MMOL/L (96-112); CREATININE 4.35 MG/DL (0.55-1.02); GFR AFRICAN AMERICAN 15 ML/MIN (>=60); GFR NON AFRICAN AMERICAN 13 ML/MIN (>=60); POTASSIUM, SERUM 5.9 MMOL/L (3.5-5.3); SGOT(AST) 37 U/L (5-40); SGPT(ALT) 60 U/L (5-65); SODIUM, SERUM 132 MMOL/L (135-148); TOTAL BILIRUBIN 3.2 MG/DL (0-1.2); TOTAL PROTEIN 6.1 G/DL (6.0-8.5)
[2016-08-20 12:27] LABS: ALKALINE PHOSPHATASE 719 U/L (45-117); BUN (BLOOD UREA NITROGEN) 87 MG/DL (6-23); CO2 (CARBON DIOXIDE) 16 MMOL/L (24-34); DIRECT BILIRUBIN 2.4 MG/DL (0.0-0.4); GLUCOSE, SERUM 466 MG/DL (60-99); INDIRECT BILIRUBIN(NOT ORDER) 0.8 MG/DL (0.1-0.9); PHOSPHORUS, SERUM 6.7 MG/DL (2.5-4.5)
[2016-08-20 12:48] LABS: ANA PATTERN SPECKLED; ANA TITER 1:40 TITER
[2016-08-20 15:47] LABS: BASOPHILS 2.4 %; BASOPHILS ABSOLUTE 0.06 10/3/uL (0.0-0.16); EOSINOPHILS 0 %; LYMPHOCYTES 38.3 %; LYMPHOCYTES ABSOLUTE 0.95 10/3/uL (0.67-4.30); MEAN CORPUS HGB CONC 33.1 g/dL (32.0-36.0); MEAN CORPUSCULAR HEMOGLOB 36.1 pg (26.0-34.0); MONOCYTES 5.6 %; MONOCYTES ABSOLUTE 0.14 10/3/uL (0.21-1.20); NEUTROPHILS 53.7 %; NEUTROPHILS ABSOLUTE 1.33 10/3/uL (2.02-8.40); RBC DISTRIBUTION WIDTH 19.6 % (12.0-16.0); WHITE BLOOD CELLS 2.5 10/3/uL (4.5-10.5)
[2016-08-20 15:49] LABS: RED CELL COUNT 1.58 10/6/uL (4.0-5.6)
[2016-08-20 15:50] LABS: HEMATOCRIT 17.2 % (36.0-48.0); HEMOGLOBIN 5.7 g/dL (12.0-16.0); MEAN CORPUSCULAR VOLUME 108.9 fL (80-100); PLATELET COUNT 28 10/3/uL (150-400)
[2016-08-20 15:56] LABS: ALBUMIN 2.6 G/DL (3.5-5.0); CALCIUM, SERUM 9.4 MG/DL (8.5-10.4); CHLORIDE, SERUM 103 MMOL/L (96-112); CREATININE 4.27 MG/DL (0.55-1.02); GFR AFRICAN AMERICAN 15 ML/MIN (>=60); GFR NON AFRICAN AMERICAN 13 ML/MIN (>=60); POTASSIUM, SERUM 5.1 MMOL/L (3.5-5.3); SODIUM, SERUM 137 MMOL/L (135-148)
[2016-08-20 15:58] LABS: BUN (BLOOD UREA NITROGEN) 92 MG/DL (6-23); CO2 (CARBON DIOXIDE) 22 MMOL/L (24-34); GLUCOSE, SERUM 222 MG/DL (60-99); PHOSPHORUS, SERUM 4.4 MG/DL (2.5-4.5)
[2016-08-20 16:38] LABS: WBC (NOT ORDERED) (RFLEX) 0 (0-5)
[2016-08-20 17:04] LABS: BAND NEUTROPHILS 2 %; IMMATURE GRANS ABSOLUTE (CALC) 0.03 10/3/uL (0.0-0.11); LYMPHOCYTES 27 %; LYMPHOCYTES ABSOLUTE (CALC) 0.68 10/3/uL (0.67-4.30); METAMYELOCYTES 1 %; SEGMENTED NEUTROPHIL (0) 70 %; TOTAL NUCLEATED CELLS 100
[2016-08-20 17:05] LABS: ANISOCYTOSIS 1+ (5-10/OIF) (0-5/OIF)
[2016-08-20 17:06] LABS: TEARDROP SHAPED RBCS FEW (3-10/OIF)
[2016-08-20 17:17] LABS: ASCORBIC ACID (UR NOT ORDER) NEG (NEG); BILIRUBIN, URINE NEGATIVE (NEG); KETONE, URINE NEGATIVE (NEG); LEUKOCYTE ESTERASE(NOT OR NEG (NEG)
[2016-08-20 18:59] LABS: ALBUMIN 2.5 G/DL (3.5-5.0); BUN (BLOOD UREA NITROGEN) 92 MG/DL (6-23); CALCIUM, SERUM 9.6 MG/DL (8.5-10.4); CHLORIDE, SERUM 104 MMOL/L (96-112); CO2 (CARBON DIOXIDE) 24 MMOL/L (24-34); CREATININE 4.24 MG/DL (0.55-1.02); GFR AFRICAN AMERICAN 15 ML/MIN (>=60); GFR NON AFRICAN AMERICAN 13 ML/MIN (>=60); GLUCOSE, SERUM 200 MG/DL (60-99); PHOSPHORUS, SERUM 5.2 MG/DL (2.5-4.5); POTASSIUM, SERUM 5.3 MMOL/L (3.5-5.3); SODIUM, SERUM 137 MMOL/L (135-148)
[2016-08-20 23:32] LABS: ALBUMIN 2.4 G/DL (3.5-5.0); BUN (BLOOD UREA NITROGEN) 93 MG/DL (6-23); CALCIUM, SERUM 9.3 MG/DL (8.5-10.4); CHLORIDE, SERUM 105 MMOL/L (96-112); CO2 (CARBON DIOXIDE) 23 MMOL/L (24-34); CREATININE 4.32 MG/DL (0.55-1.02); GFR AFRICAN AMERICAN 15 ML/MIN (>=60); GFR NON AFRICAN AMERICAN 13 ML/MIN (>=60); PHOSPHORUS, SERUM 5.9 MG/DL (2.5-4.5); POTASSIUM, SERUM 5.5 MMOL/L (3.5-5.3); SODIUM, SERUM 138 MMOL/L (135-148)
[2016-08-20 23:35] LABS: GLUCOSE, SERUM 152 MG/DL (60-99)
[2016-08-21 03:42] LABS: MEAN CORPUS HGB CONC 33.6 g/dL (32.0-36.0); MEAN CORPUSCULAR HEMOGLOB 34.8 pg (26.0-34.0); WHITE BLOOD CELLS 3.5 10/3/uL (4.5-10.5)
[2016-08-21 03:44] LABS: HEMATOCRIT 23.8 % (36.0-48.0); MANUAL DIFF YES %; MEAN CORPUSCULAR VOLUME 103.5 fL (80-100); PLATELET COUNT 36 10/3/uL (150-400)
[2016-08-21 03:53] LABS: INTERNATIONAL NORMAL RATI 1.4 UNITS (-); PROTIME (NOT ORD) 17.2 SEC (12.0-14.5)
[2016-08-21 04:07] LABS: A/G RATIO 0.9 (0.7-1.9); ALBUMIN 2.5 G/DL (3.5-5.0); BUN (BLOOD UREA NITROGEN) 94 MG/DL (6-23); CALCIUM, SERUM 9.3 MG/DL (8.5-10.4); CHLORIDE, SERUM 106 MMOL/L (96-112); CO2 (CARBON DIOXIDE) 22 MMOL/L (24-34); CREATININE 4.34 MG/DL (0.55-1.02); GFR AFRICAN AMERICAN 15 ML/MIN (>=60); GFR NON AFRICAN AMERICAN 13 ML/MIN (>=60); GLOBULIN 2.9 G/DL (2.5-4.1); GLUCOSE, SERUM 145 MG/DL (60-99); POTASSIUM, SERUM 5.4 MMOL/L (3.5-5.3); SGOT(AST) 42 U/L (5-40); SGPT(ALT) 47 U/L (5-65); SODIUM, SERUM 139 MMOL/L (135-148); TOTAL PROTEIN 5.4 G/DL (6.0-8.5)
[2016-08-21 04:09] LABS: ALKALINE PHOSPHATASE 592 U/L (45-117); GAMMA GT 497 U/L (5-85); TOTAL BILIRUBIN 1.8 MG/DL (0-1.2); ULTRASENSITIVE TSH 0.013 MCIU/ML (0.358-3.740)
[2016-08-21 04:32] LABS: EOSINOPHILS 2 %; EOSINOPHILS ABSOLUTE (CALC) 0.07 10/3/uL (0.0-0.53); LYMPHOCYTES 30 %; LYMPHOCYTES ABSOLUTE (CALC) 1.05 10/3/uL (0.67-4.30); MONOCYTES 4 %; MONOCYTES ABSOLUTE (CALC) 0.14 10/3/uL (0.21-1.20); NEUTROPHILS ABSOLUTE (CALC) 2.24 10/3/uL (2.02-8.40); SEGMENTED NEUTROPHIL (0) 64 %; TOTAL NUCLEATED CELLS 100
[2016-08-21 04:33] LABS: MACROCYTES 1+ (5-10/OIF) (0-5/OIF); PLATELET ESTIMATE DEC (ADEQUATE); POIKILOCYTOSIS 1+ (5-10/OIF) (0-5/OIF)
[2016-08-21 04:36] LABS: TEARDROP SHAPED RBCS FEW (3-10/OIF)
[2016-08-21 04:37] LABS: ATYPICAL LYMPH OCC (0-2%) (0-5%)
[2016-08-21 04:38] LABS: PARTIAL THROMBO TIME 21.5 SEC (22.5-37.2)
[2016-08-21 05:18] LABS: PHOSPHORUS, SERUM 5.7 MG/DL (2.5-4.5)
[2016-08-21 08:19] LABS: RETICULOCYTE COUNT 2.2 % (0.5-2.9); RETICULOCYTE COUNT ABSOLUTE 46.1 10/3/uL (20.2-119.8)
[2016-08-21 08:56] LABS: ALBUMIN 2.6 G/DL (3.5-5.0); BUN (BLOOD UREA NITROGEN) 94 MG/DL (6-23); CALCIUM, SERUM 9.3 MG/DL (8.5-10.4); CHLORIDE, SERUM 107 MMOL/L (96-112); CO2 (CARBON DIOXIDE) 22 MMOL/L (24-34); CREATININE 4.37 MG/DL (0.55-1.02); GFR AFRICAN AMERICAN 15 ML/MIN (>=60); GFR NON AFRICAN AMERICAN 13 ML/MIN (>=60); PHOSPHORUS, SERUM 5.7 MG/DL (2.5-4.5); POTASSIUM, SERUM 4.9 MMOL/L (3.5-5.3); SODIUM, SERUM 140 MMOL/L (135-148)
[2016-08-21 08:57] LABS: GLUCOSE, SERUM 107 MG/DL (60-99)
[2016-08-21 10:05] LABS: FREE T4 3.83 NG/DL (0.76-1.46)
[2016-08-21 22:24] LABS: HSV 1 TYPE SPECIFIC IGG AB Negative (NEG)
[2016-08-22 02:16] LABS: HEMATOCRIT 24.4 % (36.0-48.0); HEMOGLOBIN 8.3 g/dL (12.0-16.0); MEAN CORPUSCULAR HEMOGLOB 34.6 pg (26.0-34.0); MEAN CORPUSCULAR VOLUME 101.7 fL (80-100)
[2016-08-22 02:20] LABS: PLATELET COUNT 29 10/3/uL (150-400); WHITE BLOOD CELLS 2.3 10/3/uL (4.5-10.5)
[2016-08-22 02:22] LABS: MANUAL DIFF YES %
[2016-08-22 02:29] LABS: ALBUMIN 2.8 G/DL (3.5-5.0); BUN (BLOOD UREA NITROGEN) 96 MG/DL (6-23); CALCIUM, SERUM 9.4 MG/DL (8.5-10.4); CHLORIDE, SERUM 105 MMOL/L (96-112); CO2 (CARBON DIOXIDE) 23 MMOL/L (24-34); PHOSPHORUS, SERUM 5.6 MG/DL (2.5-4.5); POTASSIUM, SERUM 4.6 MMOL/L (3.5-5.3); SODIUM, SERUM 141 MMOL/L (135-148)
[2016-08-22 02:31] LABS: CREATININE 3.59 MG/DL (0.55-1.02); GFR AFRICAN AMERICAN 19 ML/MIN (>=60); GFR NON AFRICAN AMERICAN 16 ML/MIN (>=60); GLUCOSE, SERUM 313 MG/DL (60-99)
[2016-08-22 02:44] LABS: ATYPICAL LYMPH FEW (3-5%) (0-5%); LYMPHOCYTES 54 %; LYMPHOCYTES ABSOLUTE (CALC) 1.24 10/3/uL (0.67-4.30); MONOCYTES 6 %; MONOCYTES ABSOLUTE (CALC) 0.14 10/3/uL (0.21-1.20); NEUTROPHILS ABSOLUTE (CALC) 0.92 10/3/uL (2.02-8.40); PLATELET ESTIMATE DEC (ADEQUATE); RBC MORPHOLOGY ABN (NORMAL); SEGMENTED NEUTROPHIL (0) 40 %; TOTAL NUCLEATED CELLS 100
[2016-08-22 04:15] LABS: ALLENS TEST Pos; CARBOXYHEMOGLOBIN 0.3 % (0-3); HEMOBLOGIN CONTENT 8.4 G/DL (12-16); INSTRUMENT SERIAL # 35151; METHEMOGLOBIN 0.8 % (0-3); OPERATOR ID 23712; PCO2 (CO2 TENSION) 34 MMHG (35-45); PO2 (O2 TENSION) 43 MMHG (79-93); SAMPLE Arterial; pH 7.43 (7.37-7.43)
[2016-08-23 05:49] LABS: HEMATOCRIT 22.8 % (36.0-48.0); HEMOGLOBIN 7.9 g/dL (12.0-16.0); MEAN CORPUS HGB CONC 34.6 g/dL (32.0-36.0); MEAN CORPUSCULAR HEMOGLOB 36.9 pg (26.0-34.0); RBC DISTRIBUTION WIDTH 22.5 % (12.0-16.0); RED CELL COUNT 2.14 10/6/uL (4.0-5.6)
[2016-08-23 05:51] LABS: A/G RATIO 0.9 (0.7-1.9); CALCIUM, SERUM 9.5 MG/DL (8.5-10.4); CHLORIDE, SERUM 107 MMOL/L (96-112); CO2 (CARBON DIOXIDE) 27 MMOL/L (24-34); GLOBULIN 3.4 G/DL (2.5-4.1); SGOT(AST) 41 U/L (5-40); SGPT(ALT) 69 U/L (5-65); SODIUM, SERUM 145 MMOL/L (135-148); TOTAL BILIRUBIN 1.9 MG/DL (0-1.2); TOTAL PROTEIN 6.4 G/DL (6.0-8.5)
[2016-08-23 05:52] LABS: ALKALINE PHOSPHATASE 634 U/L (45-117); BUN (BLOOD UREA NITROGEN) 68 MG/DL (6-23); CREATININE 1.89 MG/DL (0.55-1.02); GFR AFRICAN AMERICAN 41 ML/MIN (>=60); GFR NON AFRICAN AMERICAN 35 ML/MIN (>=60); GLUCOSE, SERUM 96 MG/DL (60-99); PHOSPHORUS, SERUM 3.7 MG/DL (2.5-4.5); POTASSIUM, SERUM 3.3 MMOL/L (3.5-5.3)
[2016-08-23 06:09] LABS: MANUAL DIFF YES %; MEAN CORPUSCULAR VOLUME 106.5 fL (80-100); PLATELET COUNT 32 10/3/uL (150-400)
[2016-08-23 06:46] LABS: EOSINOPHILS 6 %; EOSINOPHILS ABSOLUTE (CALC) 0.12 10/3/uL (0.0-0.53); LYMPHOCYTES 56 %; LYMPHOCYTES ABSOLUTE (CALC) 1.12 10/3/uL (0.67-4.30); MACROCYTES 1+ (5-10/OIF) (0-5/OIF); MONOCYTES 1 %; MONOCYTES ABSOLUTE (CALC) 0.02 10/3/uL (0.21-1.20); NEUTROPHILS ABSOLUTE (CALC) 0.74 10/3/uL (2.02-8.40); SEGMENTED NEUTROPHIL (0) 37 %; TOTAL NUCLEATED CELLS 100
[2016-08-24 08:15] LABS: HEMOGLOBIN 8.5 g/dL (12.0-16.0); MEAN CORPUSCULAR HEMOGLOB 33.9 pg (26.0-34.0); MEAN CORPUSCULAR VOLUME 104.8 fL (80-100); RBC DISTRIBUTION WIDTH 21.7 % (12.0-16.0); RED CELL COUNT 2.51 10/6/uL (4.0-5.6)
[2016-08-24 08:16] LABS: HEMATOCRIT 26.3 % (36.0-48.0); MEAN CORPUS HGB CONC 32.3 g/dL (32.0-36.0); PLATELET COUNT 39 10/3/uL (150-400); WHITE BLOOD CELLS 2.4 10/3/uL (4.5-10.5)
[2016-08-24 08:17] LABS: MANUAL DIFF YES %
[2016-08-24 08:30] LABS: A/G RATIO 0.9 (0.7-1.9); ALBUMIN 3.1 G/DL (3.5-5.0); ALKALINE PHOSPHATASE 630 U/L (45-117); CALCIUM, SERUM 9.2 MG/DL (8.5-10.4); CHLORIDE, SERUM 105 MMOL/L (96-112); CO2 (CARBON DIOXIDE) 27 MMOL/L (24-34); GLOBULIN 3.5 G/DL (2.5-4.1); PHOSPHORUS, SERUM 3.4 MG/DL (2.5-4.5); POTASSIUM, SERUM 3.1 MMOL/L (3.5-5.3); SGOT(AST) 50 U/L (5-40); SGPT(ALT) 65 U/L (5-65); SODIUM, SERUM 144 MMOL/L (135-148); TOTAL BILIRUBIN 1.9 MG/DL (0-1.2); TOTAL PROTEIN 6.6 G/DL (6.0-8.5)
[2016-08-24 08:31] LABS: BUN (BLOOD UREA NITROGEN) 45 MG/DL (6-23); CREATININE 1.27 MG/DL (0.55-1.02); GFR AFRICAN AMERICAN 67 ML/MIN (>=60); GFR NON AFRICAN AMERICAN 57 ML/MIN (>=60); GLUCOSE, SERUM 176 MG/DL (60-99)
[2016-08-24 08:45] LABS: BAND NEUTROPHILS 1 %; EOSINOPHILS 4 %; LYMPHOCYTES 54 %; MONOCYTES 2 %; MONOCYTES ABSOLUTE (CALC) 0.05 10/3/uL (0.21-1.20); NEUTROPHILS ABSOLUTE (CALC) 0.96 10/3/uL (2.02-8.40); SEGMENTED NEUTROPHIL (0) 39 %; TOTAL NUCLEATED CELLS 100
[2016-08-24 08:46] LABS: ANISOCYTOSIS 1+ (5-10/OIF) (0-5/OIF); MACROCYTES 1+ (5-10/OIF) (0-5/OIF); REACTIVE LYMPHS FEW (3-5%) (0-5%)
[2016-08-24 14:20] LABS: CMV DNA PCR QUAL Not Detected (NOTDET); CMV SOURCE Plasma (())
[2016-08-24] MEDS ORDERED: ZOVIRAX400 MG PO (17:12)
[2016-08-25 19:34] LABS: HSV DNA TYPE 1 Not Detected (NOTDET); HSV DNA TYPE 2 Not Detected (NOTDET); SOURCE Serum (())
== END 2016-08-24 18:00 | disposition home or self-care (01) | DRG 808 ==
LOC: 4SO 16:40 → CCU 08-20 10:50 → 5SO 08-23 14:14
PROVIDERS: Internal Medicine; Internal Medicine Gastroenterology; Internal Medicine Hepatology; Internal Medicine Nephrology; Internal Medicine Pulmonary Disease
PROC: 02HV33Z Insertion of Infusion Device into Superior Vena Cava, Percutaneous Approach (ICD-10-PCS; principal; 2016-08-20)
PROC: 4A02X4A Measurement of Cardiac Electrical Activity, Guidance, External Approach (ICD-10-PCS; 2016-08-20)
PROC: 07DR3ZX Extraction of Iliac Bone Marrow, Percutaneous Approach, Diagnostic (ICD-10-PCS; 2016-08-21)
DX: D61.811 Other drug-induced pancytopenia (principal); E10.10 Type 1 diabetes mellitus with ketoacidosis without coma; G92 Toxic encephalopathy; N17.9 Acute kidney failure, unspecified; J81.1 Chronic pulmonary edema; Z94.4 Liver transplant status; E87.2 Acidosis; N39.0 Urinary tract infection, site not specified; K31.84 Gastroparesis; T37.0X5A Adverse effect of sulfonamides, initial encounter; F31.9 Bipolar disorder, unspecified; E10.43 Type 1 diabetes mellitus with diabetic autonomic (poly)neuropathy; F42.9 Obsessive-compulsive disorder, unspecified; F41.9 Anxiety disorder, unspecified; Z88.2 Allergy status to sulfonamides; Z79.82 Long term (current) use of aspirin; Z79.899 Other long term (current) drug therapy; Z79.4 Long term (current) use of insulin; Z96.41 Presence of insulin pump (external) (internal)
CPT/HCPCS: 36415; 36569; 36600; 71010; 74176; 76700; 80053; 80069; 80076; 80178; 80197; 81001; 82009; 82140; 82248; 82550; 82553; 82570; 82607; 82746; 82784; 82805; 82962; 82977; 83010; 83036; 83605; 83615; 83735; 83880; 83935; 84100; 84145; 84300; 84439; 84443; 84481; 84484; 84703; 85025; 85045; 85610; 85730; 86039; 86160; 86644; 86645; 86694; 86695; 86696; 86850; 86900; 86901; 86920; 87496; 87529; 87529-59; 87641; 88305; 88311; 88312; 88313; 88341; 88342; 93005; A9270-GY; C1751; J0610; J1200; J1630; J1720; J2405; J2550; J2920; J3010; J7500; J7507; P9016